=== PATIENT | male | born 1955 | race Caucasian/White ===

== ENCOUNTER 2019-07-07 20:52 | Emergency (ER) | payer SELFPAY ==
[~2019-07-07] VITALS: Ht 175.3 cm; Wt 78.5 kg
[2019-07-07 21:04] VITALS: BP_SYST 142
--- NOTE | 2019-07-07 21:05 | NUR ---
Placed in room [address] recording monitor, blood pressure machine and pulse oximeter. To gown for exam. Side rails up.
--- NOTE | 2019-07-07 21:05 | NUR ---
Patient placed on suicide precautions. Patient placed in room within close proximity to nurses' station for closer observation and monitoring. All clothing removed, placed in hospital gown. Metal detector wand used to further screen patient of any potential hazardous belongings. All belongings inventoried, placed in bags and removed from room. Cabinets locked. BP and pulse oximeter cords, and hall monitor leads removed.
--- NOTE | 2019-07-07 21:10 | NUR ---
BROUGHT IN BY AMBULANCE FOR POSSIBLE OVERDOSE WITH DILAUDID. NARCAN GIVEN EN ROUTE. PLACED IN BED 5. DENIES SUICIDAL IDEATION.
--- NOTE | 2019-07-07 21:15 | NUR ---
Security at bedside for wanding.
--- NOTE | 2019-07-07 21:18 | NUR ---
Dr. Pablo at bedside speaking to patient. Per Dr. Pablo, pt states, "I am not suicidal."
--- NOTE | 2019-07-07 21:19 | NUR ---
Patient does not wish to proceed with medical care recommended by Dr. Pablo. Patient given information related to possible complications, up to and including , which could occur as a result of leaving hospital at this time. Patient verbalizes understanding of risks involved leaving against medical advice. Patient has signed AMA form.
--- NOTE | 2019-07-07 21:19 | NUR ---
PT. LEFT AGAINST MEDICAL ADVICE STABLE. AMA FORM SIGNED. LEFT WITH [facility] WITH STABLE GAIT.
[2019-07-07 21:27] VITALS: BP_SYST 142
== END 2019-07-07 21:27 | disposition left against medical advice (07) ==
LOC: SED 20:52
DX: T50.991A Poisoning by other drugs, medicaments and biological substances, accidental (unintentional), initial encounter (principal); Y92.89 Other specified places as the place of occurrence of the external cause
CPT/HCPCS: 99283